=== PATIENT | male | born 1960 | race African-American/Black ===

== ENCOUNTER 2022-10-29 23:09 | Inpatient (IN) | payer OTHER ==
[2022-10-30 00:38] VITALS: BMI 23.4
[2022-10-30] MEDS ORDERED: methaDONE HCL 10 MG TABLET (FOR DETOX USE ONLY) PO ONE (06:10)
[2022-10-30] MEDS ORDERED: BENZOCAINE/MENTHOL (CHLORASEPTIC ) LOZENGE MM PRN (06:10)
[2022-10-30] MEDS ORDERED: NICOTINE 10 MG CARTRIDGE (INHALER) IH PRN (06:10)
[2022-10-30] MEDS ORDERED: NALOXONE HCL 0.4 MG/ML VIAL IM PRN (06:10)
[2022-10-30] MEDS ORDERED: NALOXONE HCL (KLOXXADO) 8 MG SPRAY NS PRN (06:10)
[2022-10-30] MEDS ORDERED: guaiFENesin 600 MG TABLET.ER (FP) PO PRN (06:10)
[2022-10-30] MEDS ORDERED: MAG HYDROX/AL HYDROX/SIMETH 30 ML UNIT-DOSE CUP PO PRN (06:10)
[2022-10-30] MEDS ORDERED: MAGNESIUM HYDROX 2400MG/30ML ORAL SUSPENSION 30 ML CUP PO PRN (06:10)
[2022-10-30] MEDS ORDERED: IBUPROFEN 600 MG TABLET (FP) PO PRN (06:10)
[2022-10-30] MEDS ORDERED: BENZONATATE 200 MG CAPSULE PO PRN (06:10)
[2022-10-30] MEDS ORDERED: DICYCLOMINE HCL 10 MG CAPSULE PO PRN (06:10)
[2022-10-30] MEDS ORDERED: ACETAMINOPHEN 325 MG TABLET (FP) PO PRN (06:10)
[2022-10-30] MEDS ORDERED: LOPERAMIDE HCL 2 MG CAPSULE PO PRN (06:10)
[2022-10-30] MEDS ORDERED: POLYETHYLENE GLYCOL (HEALTHYLAX) 3350 17 GM PACKET PO PRN (06:10)
[2022-10-30] MEDS ORDERED: IBUPROFEN 400 MG TABLET (FP) PO PRN (06:10)
[2022-10-30] MEDS ORDERED: BISMUTH SUBSALICYLATE 524 MG/30 ML PO PRN (06:10)
[2022-10-30] MEDS ORDERED: ONDANSETRON *ODT* 4 MG TABLET SL PRN (06:10)
[2022-10-30] MEDS ORDERED: methaDONE HCL 10 MG TABLET (FOR DETOX USE ONLY) ONE (06:42)
[2022-10-30] MEDS: NICOTINE 14 MG/24 HOURS TOPICAL PATCH TD SCH (10:30)
[2022-10-30] MEDS: PRENATAL VITAMINS W/ FOLIC ACID TABLET (FP) PO SCH (10:30)
[2022-10-30] MEDS: METHOCARBAMOL 500 MG TABLET PO PRN (10:31)
[2022-10-30] MEDS ORDERED: MELATONIN 5 MG TABLETS PO SCH (22:00)
[2022-10-30] MEDS ORDERED: THIAMINE HCL 100 MG TABLET (FP) PO SCH (22:00)
[2022-10-30] MEDS: cloNIDine HCL 0.1 MG TABLET PO PRN (22:28)
[2022-10-31] MEDS ORDERED: diazePAM 5 MG TABLET PO PRN (10:35)
[2022-10-31] MEDS: PRENATAL VITAMINS W/ FOLIC ACID TABLET (FP) PO SCH (10:37)
[2022-10-31] MEDS: METHOCARBAMOL 500 MG TABLET PO PRN (10:38)
[2022-10-31] MEDS: NICOTINE 14 MG/24 HOURS TOPICAL PATCH TD SCH (10:38)
[2022-10-31] MEDS: cloNIDine HCL 0.1 MG TABLET PO PRN (10:38)
[2022-10-31 10:56] LABS: POTASSIUM 4.2 mmol/L (3.5-5.1)
[2022-10-31 10:57] LABS: CALCIUM 9.1 mg/dL (8.5-10.1)
[2022-10-31 10:58] LABS: ALBUMIN 3.2 g/dl (3.4-5.0); BLOOD UREA NITROGEN 10.8 mg/dL (7-18)
[2022-10-31 11:01] LABS: CREATININE 0.7 mg/dL (0.55-1.3); MCH 29.4 pg (25.7-33.7); MCHC 33.3 g/dl (32.0-35.9); MEAN CELL VOLUME 88.4 fl (80-96); MEAN PLT VOLUME 8.5 fl (7.5-11.1); PLATELET COUNT 224 10^3/uL (134-434); RBC 4.07 M/mm3 (4.00-5.60); RDW 14.8 % (11.9-15.9); WHITE BLOOD COUNT 3.8 K/mm3 (4.0-10.0)
[2022-10-31 11:03] LABS: BILIRUBIN,TOTAL 0.6 mg/dL (0.2-1); TOT PROT 6.2 g/dl (6.4-8.2)
[2022-10-31 13:20] VITALS: BP 120/68; PULSE 55; RESP 17; TEMP 97.7
[2022-11-01] MEDS ORDERED: methaDONE HCL 10 MG TABLET (FOR DETOX USE ONLY) PO ONE (10:00)
[2022-11-03] MEDS ORDERED: methaDONE HCL 10 MG TABLET (FOR DETOX USE ONLY) PO ONE (10:00)
== END 2022-10-31 12:35 | disposition left against medical advice (07) | DRG 770 ==
LOC: YASAS 23:09 → Y6N 10-30 06:50
PROVIDERS: ADMIT Allergy & Immunology; ATTEND Surgery
PROC: HZ2ZZZZ Detoxification Services for Substance Abuse Treatment (ICD-10-PCS; principal; 2022-10-30)
DX: F11.23 Opioid dependence with withdrawal (principal); F17.210 Nicotine dependence, cigarettes, uncomplicated; Z88.0 Allergy status to penicillin
CPT/HCPCS: 36415; 80053; 85027; 86780; 87635; 93005; 93010